=== PATIENT | male | born 1985 | race Caucasian/White ===

== ENCOUNTER 2016-07-21 11:09 | Emergency (ER) | payer OTHER ==
--- NOTE | 2016-07-21 12:58 | UC ---
Ear Complaint HPI - HPI Summary HPI Summary: swelling right side of face around ear did have a lesion on right side of scalp a couple of days prior to the swelling - History of Current Complaint Chief Complaint: UCEar Stated Complaint: FACIAL SWELLING Time Seen by Provider: 07/21/16 12:44 Hx Obtained From: Patient Onset/Duration: Sudden Onset - awoke with swelling today, Still Present Severity Initially: Moderate Severity Currently: Moderate Pain Intensity: 5 Pain Scale Used: 0-10 Numeric Aggravating Factors: Nothing Alleviating Factors: Nothing Associated Signs/Symptoms: Positive: Swelling @ - Allergies/Home Medications Allergies/Adverse Reactions: Allergies Allergy/AdvReac Type Severity Reaction Status Date / Time Amoxicillin Allergy Hives Verified 07/21/16 11:20 Erythromycin Allergy Hives Verified 07/21/16 11:20 Penicillins [PCN] Allergy Hives Verified 07/21/16 11:20 PMH/Surg Hx/FS Hx/Imm Hx Previously Healthy: No - gout Cardiovascular History: Hypertension - has not taken BP med for 6 months - Surgical History Surgical History: None - Family History Known Family History: Positive: Hypertension Family History: gout - Social History Occupation: Employed Full-time Lives: With Family Alcohol Use: None Substance Use Type: None Smoking Status (MU): Never Smoked Tobacco Review of Systems Constitutional: Negative Skin: Rash Eyes: Negative ENT: Negative, Other - around ear and Pinna red warm and swollen Respiratory: Negative Cardiovascular: Negative Gastrointestinal: Negative Genitourinary: Negative Motor: Negative Neurovascular: Negative Musculoskeletal: Negative Neurological: Negative Psychological: Negative All Other Systems Reviewed And Are Negative: Yes Physical Exam Triage Information Reviewed: Yes Appearance: No Pain Distress, Ill-Appearing - mild, Obese Vital Signs: Initial Vital Signs Temp 99.5 F 07/21/16 11:16 Pulse 99 07/21/16 11:16 Resp 16 07/21/16 11:16 BP 174/90 07/21/16 11:16 Pulse Ox 99 07/21/16 11:16 Vital Signs Reviewed: Yes Eye Exam: Normal Eyes: Positive: Conjunctiva Clear ENT Exam: Normal ENT: Positive: Normal ENT inspection, Hearing grossly normal, Pharynx normal, TMs normal. Negative: Nasal congestion, Nasal drainage, Tonsillar swelling, Tonsillar exudate, Trismus Dental Exam: Normal Neck exam: Normal Neck: Positive: Supple, Nontender, Other: - swelling and erythema right side of neck and ear Respiratory Exam: Normal Respiratory: Positive: Chest non-tender, Lungs clear, Normal breath sounds, No respiratory distress, No accessory muscle use Cardiovascular Exam: Normal Cardiovascular: Positive: RRR, No Murmur, Pulses Normal, Brisk Capillary Refill Musculoskeletal Exam: Normal Musculoskeletal: Positive: Strength Intact, ROM Intact, No Edema Neurological Exam: Normal Neurological: Positive: Alert, Muscle Tone Normal Psychological Exam: Normal Skin Exam: Normal Ear Complaint Course/Dx - Course Course Of Treatment: re-start blood pressure medications, to ed for evaluation of swelling cellulitis vs abscess - Differential Dx/Diagnosis Differential Diagnosis/HQI/PQRI: Cellulitis, Mastoiditis, URI Provider Diagnoses: Cellulitis, abscess right side of neck - Physician Notifications Discussed Patient Care With: BERTHA Time Discussed With Above Provider: 11:45 Discharge - Discharge Plan Condition: Fair Disposition: AGAINST MEDICAL ADVICE Prescriptions: Lisinopril [Zestril 20 MG-] 20 mg PO DAILY #30 tab Referrals: No Primary Care Phys,NOPCP [Primary Care Provider] -
[2016-07-21 13:20] VITALS: BP 159/79
== END 2016-07-21 13:15 | disposition left against medical advice (07) ==
LOC: UCEAST 11:09
DX: L03.221 Cellulitis of neck (principal); I10 Essential (primary) hypertension
CPT/HCPCS: 99202; G0463

== ENCOUNTER → 2016-07-21 14:27 | Emergency (ER) | payer OTHER ==
[~2016-07-21 14:27] MED LIST: Acetaminophen TAB* 325 MG PO ONE; Clindamycin CAP* 150 MG PO ONE
--- NOTE | 2016-07-21 16:44 | ED ---
Skin Complaint - HPI Summary HPI Summary: Patient is referred from [facility] for possible ear infection with posterior lymph node swelling. He has a history of severe otitis media in this same ear. He denies ear pain, drainage, fever, chills, tooth ache, headache or hearing loss. While taking his history I noted a red patch on his scalp that tender to the touch. He says he had a "pimple" there a few days ago that he picked at and since then it has gotten more tender and red. - History of Current Complaint Chief Complaint: EDNeckComplaint Time Seen by Provider: 07/21/16 14:54 Stated Complaint: RT SIDE FACIAL SWELLING/REDNESS Hx Obtained From: Patient Onset/Duration: Started Days Ago, Atraumatic, Still Present Skin Exposure Onset/Duration: Days Ago Timing: Constant Onset Severity: Mild Current Severity: Mild Pain Intensity: 2 Skin Location: Discrete - scalp Character: Swelling, Pain, Redness Aggravating Symptom(s): Touch Alleviating Symptom(s): Nothing Associated Signs & Symptoms: Tenderness - Allergy/Home Medications Allergies/Adverse Reactions: Allergies Allergy/AdvReac Type Severity Reaction Status Date / Time Amoxicillin Allergy Hives Verified 07/21/16 11:20 Erythromycin Allergy Hives Verified 07/21/16 11:20 Penicillins [PCN] Allergy Hives Verified 07/21/16 11:20 PMH/Surg Hx/FS Hx/Imm Hx Cardiovascular History: Reports: Hx Hypertension Infectious Disease History: No Infectious Disease History: Denies: Traveled Outside the [place] in Last 30 Days - Family History Known Family History: Positive: None - Social History Occupation: Employed Full-time Lives: With Family Alcohol Use: None Substance Use Type: Reports: None Smoking Status (MU): Never Smoked Tobacco Review of Systems Negative: Fever, Chills Positive: Other - 3 cm area of erythema anterior lateral scalp All Other Systems Reviewed And Are Negative: Yes Physical Exam Triage Information Reviewed: Yes Vital Signs On Initial Exam: Initial Vitals Temp Pulse Resp BP Pulse Ox 99.5 F 112 20 187/91 98 07/21/16 14:33 07/21/16 14:33 07/21/16 14:33 07/21/16 14:33 07/21/16 14:33 Vital Signs Reviewed: Yes Appearance: Positive: Well-Appearing, No Pain Distress, Obese Skin: Positive: Warm, Skin Color Reflects Adequate Perfusion, Dry, Tender, Soft , Erythema @ - 3 cm area of erythema anterior lateral scalp Head/Face: Positive: Normal Head/Face Inspection Eyes: Positive: EOMI, MICKY, Conjunctiva Clear ENT: Positive: Hearing grossly normal Dental: Negative: Percussion Tenderness @, Gross Decay/Caries @ Neck: Positive: Supple, Nontender, Tenderness @ - right post auricular swelling and tenderness. Respiratory/Lung Sounds: Positive: Breath Sounds Present Cardiovascular: Positive: Tachycardia Diagnostics - Vital Signs Vital Signs Temp Pulse Resp BP Pulse Ox 07/21/16 14:35 99.5 F 107 20 187/91 99 07/21/16 14:33 99.5 F 112 20 187/91 98 - Laboratory Lab Statement: Any lab studies that have been ordered have been reviewed, and results considered in the medical decision making process. Re-Evaluation - Re-Evaluation First Eval Re-Evaluation Time: 16:55 Change: Worse Comment: Nursing reports the patient has a pulse of 104 with discharge vitals. He will be given oral hydration and tylenol, and rechecked for discharge. Course/Dx - Differential Diagnoses - Skin Complaint Differential Diagnoses: Abscess, Allergic Reaction, Cellulitis, Contact Dermatitis, Head Lice, Local Allergic Reaction, MRSA, Urticaria - Diagnoses Provider Diagnoses: Cellulitis of scalp Discharge - Discharge Plan Condition: Stable Disposition: HOME Prescriptions: Clindamycin Cap(NF) [Cleocin 300 mg Cap(NF)] 300 mg PO Q6H #39 cap Patient Education Materials: Cellulitis (ED) Referrals: [facility] [Outside] No Primary Care Phys,NOPCP [Primary Care Provider] - Additional Instructions: Please take the medication provided until it is completely gone. Return to the emergency department if symptoms do not begin to improve in 3 days and return sooner if symptoms worsen.
[2016-07-21 17:51] VITALS: BP 157/81
== END | disposition home or self-care (01) ==
LOC: ED 14:27
DX: L03.811 Cellulitis of head [any part, except face] (principal)
CPT/HCPCS: 99282; A9270-GY